=== PATIENT | female | born 1980 | race Caucasian/White ===

== ENCOUNTER 2019-08-21 20:26 | Emergency (ER) | payer OTHER ==
[~2019-08-21] VITALS: Ht 165.1 cm; Wt 97.5 kg
[2019-08-21] MEDS ORDERED: FOLIC ACID0.8 M1 (20:49)
[2019-08-21] MEDS ORDERED: PRENATAL + DHA1 EAC1 (20:49)
[2019-08-22] MEDS ORDERED: INTESTINEX680 M2 PO (06:38)
[2019-08-22] MEDS ORDERED: ZOFRAN4 MG PO ×2 (06:38)
[2019-08-22] MEDS ORDERED: PEPCID40 MG PO (06:46)
== END 2019-08-22 07:29 ==
LOC: ER 20:26
DX: O26.893 Other specified pregnancy related conditions, third trimester (principal); R19.7 Diarrhea, unspecified; E86.0 Dehydration; Z36.89 Encounter for other specified antenatal screening

== ENCOUNTER 2019-08-29 19:20 | Emergency (ER) | payer OTHER ==
[~2019-08-29] VITALS: Ht 165.1 cm; Wt 97.5 kg
[~2019-08-29 19:20] MED LIST: FOLIC ACID0.8 M1; INTESTINEX680 M2 PO; PEPCID40 MG PO; PRENATAL + DHA1 EAC1; ZOFRAN4 MG PO
[2019-08-29] MEDS ORDERED: TUSNEL LIQUID178 ML PO (22:12)
== END 2019-08-29 22:35 | disposition home or self-care (01) ==
LOC: ER 19:20
DX: J00 Acute nasopharyngitis [common cold] (principal)

== ENCOUNTER 2019-10-01 12:06 | Outpatient (CLI) | payer OTHER ==
[~2019-10-01 12:06] MED LIST changes: +TUSNEL LIQUID178 ML PO
== END 2019-10-01 19:47 | disposition home or self-care (01) ==
LOC: OBS/DEL 12:06
DX: O47.1 False labor at or after 37 completed weeks of gestation (principal)

== ENCOUNTER 2019-10-20 12:09 | Outpatient (CLI) | payer OTHER | END 2019-10-20 18:38 | disposition home or self-care (01) | LOC: OBS/DEL 12:09 | DX: O26.853 Spotting complicating pregnancy, third trimester (principal); O48.0 Post-term pregnancy ==

== ENCOUNTER 2019-10-22 15:37 | Inpatient (IN) | payer OTHER ==
[~2019-10-22] VITALS: Ht 165.1 cm; Wt 101.6 kg
== END 2019-10-24 13:45 | disposition home or self-care (01) | DRG 807 ==
LOC: LDR 15:37 → SURG-SUITE 19:00
PROVIDERS: ADMIT Specialist
PROC: 10E0XZZ Delivery of Products of Conception, External Approach (ICD-10-PCS; principal; 2019-10-22)
PROC: 0KQM0ZZ Repair Perineum Muscle, Open Approach (ICD-10-PCS; 2019-10-22)
PROC: 4A1HXFZ Monitoring of Products of Conception, Cardiac Rhythm, External Approach (ICD-10-PCS; 2019-10-22)
DX: O70.1 Second degree perineal laceration during delivery (principal); Z37.0 Single live birth; Z3A.40 40 weeks gestation of pregnancy

== ENCOUNTER 2021-10-22 21:56 | Emergency (ER) | payer OTHER ==
[~2021-10-22] VITALS: Ht 165.1 cm; Wt 105.2 kg
[2021-10-23] MEDS ORDERED: ACETAMINOPHEN650 M2 PO (06:05)
== END 2021-10-23 06:15 | disposition home or self-care (01) ==
LOC: ER 21:56
DX: O26.892 Other specified pregnancy related conditions, second trimester (principal); Z3A.20 20 weeks gestation of pregnancy; R10.2 Pelvic and perineal pain; Z91.011 Allergy to milk products

== ENCOUNTER 2022-02-15 08:06 | Inpatient (IN) | payer OTHER ==
[~2022-02-15] VITALS: Ht 152.4 cm; Wt 108.9 kg
[~2022-02-15 08:06] MED LIST changes: +ACETAMINOPHEN650 M2 PO
[2022-02-15] MEDS ORDERED: FE C TABLET1 EACH PO (08:13)
[2022-02-15] MEDS ORDERED: PRENATABS RX T1 EACH PO (08:13)
== END 2022-02-17 14:53 | disposition home or self-care (01) | DRG 805 ==
LOC: LDR 08:06 → OB/GYN 22:54
PROVIDERS: ADMIT Specialist; ATTEND Specialist
PROC: 10E0XZZ Delivery of Products of Conception, External Approach (ICD-10-PCS; principal; 2022-02-15)
PROC: 0KQM0ZZ Repair Perineum Muscle, Open Approach (ICD-10-PCS; 2022-02-15)
PROC: 4A1HXCZ Monitoring of Products of Conception, Cardiac Rate, External Approach (ICD-10-PCS; 2022-02-15)
DX: O70.1 Second degree perineal laceration during delivery (principal); O60.14X0 Preterm labor third trimester with preterm delivery third trimester, not applicable or unspecified; Z37.0 Single live birth; Z3A.36 36 weeks gestation of pregnancy; Z20.822 Contact with and (suspected) exposure to COVID-19